=== PATIENT | female | born 1945 | race Hispanic/Latino ===

== ENCOUNTER 2017-06-16 13:16 | Emergency (ER) | payer MEDICARE ==
[2017-06-16 13:26] VITALS: BP 122/48
[2017-06-16 14:17] LABS: Basophils % (Auto) 1.1 % (0.0-1.8); Eosinophils % (Auto) 3.6 % (0.0-4.3); Hematocrit 48.4 % (30.3-42.9); Hemoglobin 15.5 gm/dl (10.1-14.3); Mean Corpuscular HGB Conc 32 % (30-34); Mean Corpuscular Hemoglobin 28 pg (28-32); Mean Corpuscular Volume 87 fl (79-97); Platelet Count 334 K/mm3 (140-440); Red Blood Count 5.58 M/mm3 (3.65-5.03); Red Cell Distribution Width 14.8 % (13.2-15.2); White Blood Count 11.4 K/mm3 (4.5-11.0)
--- NOTE | 2017-06-16 14:32 | XRay Report ---
Chest 2 views. History: Shortness of breath. Findings: The heart, lungs, and pulmonary vessels are within normal limits for age.
[2017-06-16 14:36] LABS: Anion Gap 17 mmol/L; BUN/Creatinine Ratio 19; Blood Urea Nitrogen 17 mg/dL (7-17); Calcium 8.8 mg/dL (8.4-10.2); Carbon Dioxide 23 mmol/L (22-30); Chloride 100.1 mmol/L (98-107); Glucose 95 mg/dL (65-100); Potassium 4.1 mmol/L (3.6-5.0); Sodium 136 mmol/L (137-145)
--- NOTE | 2017-06-16 15:49 | Emergency Department Report ---
ED General Adult HPI - General Chief complaint: Upper Respiratory Infection Stated complaint: FLU LIKE SYMPTOMS Time Seen by Provider: 06/16/17 15:30 Source: patient Mode of arrival: Ambulatory Limitations: No Limitations - History of Present Illness Initial comments: Chief complaint difficulty breathing History of present illness patient with a history of diabetes says she's had a cough and cold for about a week she denies fever denies chest pain although she thought she maybe a little bit of cough related symptoms she denies any abdominal pain she is here for evaluation of cough and cold symptoms for about a week Past medical history significant for diabetes Social history she denied tobacco Complete review of systems otherwise negative review of systems no exertional chest pain no tearing pain no shortness of breath or swelling no severe abdominal pain Physical exam vital signs she is afebrile she is nontoxic R signs are stable room air sat was normal generally she is awake alert oriented 3 and nontoxic in no acute distress HEENT was within normal limits Neck is supple Chest was clear to auscultation without retractions questionable mild rhonchi Pulses equal bilaterally Cardiac is S1-S2 without murmur gallop or rub appreciated. Abdomen is soft nontender without mass or rebound or guarding is appreciated Extremities are without concerns sitting with good capillary refill negative Homans sign Neuro exam grossly nonfocal ED course chest x-ray was obtained this is read as negative by the radiologist laboratory studies are unremarkable symptoms are consistent with bronchitis patient is stable at this time for outpatient follow-up she'll be placed on antibiotics she is irregular from today's return if worse Clinical impression clinical impression bronchitis Disposition treatment plan patient will be discharged if condition for outpatient follow-up to r to return if new or alarming symptoms - Related Data Home Medications Medication Instructions Recorded Confirmed Last Taken Bifidobacterium Infantis 1 each PO DAILY 06/13/16 06/14/16 06/13/16 [Digestive Probiotic] Duloxetine HCl [Cymbalta] 30 mg PO DAILY 06/13/16 06/14/16 06/13/16 Gabapentin [Neurontin] 400 mg PO Q8HR 06/13/16 06/13/16 06/13/16 Levothyroxine [Synthroid] 50 mcg PO QAM 06/13/16 06/13/16 06/13/16 Metoprolol Xl [Metoprolol 50 mg PO QDAY 06/13/16 06/13/16 06/13/16 SUCCINATE ER TAB] Pantoprazole Sodium 40 mg PO DAILY 06/13/16 06/14/16 06/13/16 Quinapril HCl 10 mg PO DAILY 06/13/16 06/13/16 06/13/16 Previous Rx's Medication Instructions Recorded Last Taken Type Albuterol Sulfate [Proair 90 mcg IH Q4HR PRN #2 aer.pow.ba 06/14/16 Unknown Rx Respiclick] Benzonatate [Tessalon Perles] 100 mg PO Q8HR PRN #30 capsule 06/14/16 Unknown Rx Dicyclomine [Bentyl] 10 mg PO QID PRN #20 capsule 06/14/16 Unknown Rx Fluticasone [Flonase] 1 spray NS QDAY #1 bottle 06/14/16 Unknown Rx Nitrofurantoin [place]/M-Cryst 100 mg PO Q12HR #14 capsule 06/14/16 Unknown Rx [Macrobid CAP] Ondansetron [Zofran Odt] 4 mg PO QID PRN #20 tab.rapdis 06/14/16 Unknown Rx Azithromycin [Zithromax Tri-Ronald] 500 mg PO QDAY #3 tablet 06/16/17 Unknown Rx Allergies Allergy/AdvReac Type Severity Reaction Status Date / Time acetaminophen [From Percocet] Allergy Angioedema Verified 06/13/16 13:09 codeine Allergy Unknown Verified 05/26/14 09:52 oxycodone HCl [From Percocet] Allergy Angioedema Verified 06/13/16 13:09 Sulfa (Sulfonamide Allergy Unknown Verified 06/13/16 13:09 Antibiotics) ED Review of Systems ROS: Stated complaint: FLU LIKE SYMPTOMS Other details as noted in HPI ED Past Medical Hx - Past Medical History Hx Hypertension: Yes Hx Diabetes: Yes Hx Arthritis: Yes (RA) Additional medical history: FIBRAMYALGIA, THYROID - Social History Smoking Status: Never Smoker Substance Use Type: None - Medications Home Medications: Home Medications Medication Instructions Recorded Confirmed Last Taken Type Bifidobacterium Infantis 1 each PO DAILY 06/13/16 06/14/16 06/13/16 History [Digestive Probiotic] Duloxetine HCl [Cymbalta] 30 mg PO DAILY 06/13/16 06/14/16 06/13/16 History Gabapentin [Neurontin] 400 mg PO Q8HR 06/13/16 06/13/16 06/13/16 History Levothyroxine [Synthroid] 50 mcg PO QAM 06/13/16 06/13/16 06/13/16 History Metoprolol Xl [Metoprolol 50 mg PO QDAY 06/13/16 06/13/16 06/13/16 History SUCCINATE ER TAB] Pantoprazole Sodium 40 mg PO DAILY 06/13/16 06/14/16 06/13/16 History Quinapril HCl 10 mg PO DAILY 06/13/16 06/13/16 06/13/16 History Albuterol Sulfate [Proair 90 mcg IH Q4HR PRN #2 aer.pow.ba 06/14/16 Unknown Rx Respiclick] Benzonatate [Tessalon Perles] 100 mg PO Q8HR PRN #30 capsule 06/14/16 Unknown Rx Dicyclomine [Bentyl] 10 mg PO QID PRN #20 capsule 06/14/16 Unknown Rx Fluticasone [Flonase] 1 spray NS QDAY #1 bottle 06/14/16 Unknown Rx Nitrofurantoin [place]/M-Cryst 100 mg PO Q12HR #14 capsule 06/14/16 Unknown Rx [Macrobid CAP] Ondansetron [Zofran Odt] 4 mg PO QID PRN #20 tab.rapdis 06/14/16 Unknown Rx Azithromycin [Zithromax Tri-Ronald] 500 mg PO QDAY #3 tablet 06/16/17 Unknown Rx ED Physical Exam - General Limitations: No Limitations ED Course Vital Signs 06/16/17 13:22 Temperature 98 F Pulse Rate 98 H Respiratory 26 H Rate Blood Pressure 122/48 O2 Sat by Pulse 96 Oximetry - Reevaluation(s) Reevaluation #1: 06/16/17 15:50 Reevaluation EKG was normal sinus rhythm unchanged from previous st change troponin was negative ED Medical Decision Making - Lab Data Result diagrams: 06/16/17 14:08 06/16/17 14:04 - EKG Data When compared to previous EKG there are: other Interpretation: no acute changes Critical care attestation.: If time is entered above; I have spent that time in minutes in the direct care of this critically ill patient, excluding procedure time. ED Disposition Clinical Impression: Bronchitis Disposition: DC-01 TO HOME OR SELFCARE Is pt being admited?: No Condition: Stable Instructions: Chronic Bronchitis (ED), Acute Bronchitis (ED) Prescriptions: Azithromycin [Zithromax Tri-Ronald] 500 mg PO QDAY #3 tablet Time of Disposition: 16:04 Print Language: SERBIAN
== END 2017-06-16 16:26 | disposition home or self-care (01) ==
LOC: ED 13:16
DX: J40 Bronchitis, not specified as acute or chronic (principal); I10 Essential (primary) hypertension; E11.9 Type 2 diabetes mellitus without complications; M06.9 Rheumatoid arthritis, unspecified; M79.7 Fibromyalgia; Z88.6 Allergy status to analgesic agent; Z88.2 Allergy status to sulfonamides; Z88.5 Allergy status to narcotic agent
CPT/HCPCS: 36415; 71020; 80048; 84484; 85025; 93005; 93010; 99284

== ENCOUNTER 2018-01-04 13:36 | Emergency (ER) | payer MEDICARE ==
[2018-01-04 14:37] LABS: Basophils # (Auto) 0.1 K/mm3 (0.0-0.1); Basophils % (Auto) 1.3 % (0.0-1.8); Eosinophils # (Auto) 0.3 K/mm3 (0.0-0.4); Hemoglobin 14.8 gm/dl (10.1-14.3); Lymphocytes # (Auto) 2.5 K/mm3 (1.2-5.4); Lymphocytes % (Auto) 31.2 % (13.4-35.0); Mean Corpuscular HGB Conc 33 % (30-34); Mean Corpuscular Hemoglobin 29 pg (28-32); Mean Corpuscular Volume 87 fl (79-97); Monocytes # (Auto) 0.9 K/mm3 (0.0-0.8); Monocytes % (Auto) 10.7 % (0.0-7.3); Platelet Count 326 K/mm3 (140-440); Red Blood Count 5.18 M/mm3 (3.65-5.03); Red Cell Distribution Width 14.3 % (13.2-15.2)
[2018-01-04 14:40] LABS: Bilirubin,Urine NEG (Negative); Blood,Urine NEG (Negative); Color,Urine Yellow (Yellow); Mucus,Urine FEW /HPF; Protein,Urine <15 mg/dL mg/dL (Negative); Urobilinogen,Urine < 2.0 mg/dL (<2.0)
[2018-01-04 14:51] LABS: Alanine Aminotransferase 10 units/L (7-56); Albumin 3.6 g/dL (3.9-5); BUN/Creatinine Ratio 18; Blood Urea Nitrogen 14 mg/dL (7-17); Calcium 8.8 mg/dL (8.4-10.2); Hemolysis Index 10
[2018-01-04] MEDS ORDERED: PEPCID IV ONE (16:29)
[2018-01-04] MEDS ORDERED: ZOFRAN IV ONE (16:29)
[2018-01-04] MEDS ORDERED: TORADOL IV ONE (16:29)
[2018-01-04] MEDS ORDERED: BENTYL IM ONE (16:29)
--- NOTE | 2018-01-04 16:33 | Emergency Department Report ---
Diane Doc - Documentation Documentation: Patient is a 72-year-old female who is presenting with diffuse abdominal pain. Patient states pain has been present for approximately a week and is worse than her norm. Patient does have a history of irritable bowel syndrome but states she's never had pain at this magnitude. Patient states last night she had a very large bowel movement that was loose within was no blood present. She does feel as though maybe a hemorrhoid may have popped out during his bowel movement but she was able to push it back in. Patient denies any fevers chills she does have some nausea however. On brief focused physical exam patient does have normal bowel sounds and is diffusely tender with no rebound or guarding. Patient be moved to a treatment room IV fluids started patient also be given as for symptomatic relief. CT of the abdomen and pelvis will be obtained. Julia
[2018-01-04] MEDS: NACL 0.9% 1000 ML 1,000 ML IV ONE ×2 (16:53→16:54)
--- NOTE | 2018-01-04 18:20 | Cat Scan Report ---
FINAL REPORT EXAM: CT ABDOMEN PELVIS W CON HISTORY: diffuse severe abd pain TECHNIQUE: Spiral CT scanning of the abdomen and pelvis after the uneventful administration of IV contrast. Multiplanar reformations. PRIORS: 13 June 2016. FINDINGS: Abdomen: Visualized lung bases again show a few, small nodular densities scattered bilaterally, largest measuring 8 mm in right lower lobe, stable. Gallbladder surgically absent. Gastric body incompletely or nondistended, with some wall and fold thickening, but no significant perigastric fat stranding. Liver without significant abnormality. Spleen without significant abnormality. Pancreas without significant abnormality. Partially exophytic and heterogeneously enhancing soft tissue density or mass off left renal mid pole cortex measuring 1.3 cm. Right kidney grossly unremarkable. Adrenal glands without significant abnormality. Pelvis: Bowel grossly unremarkable, with large amount of retained stool. Appendix within normal limits. No significant free peritoneal fluid, discrete abscess or apparent adenopathy. Abdominal aorta non-aneurysmal. Degenerative changes in thoracolumbar spine. Very small, fat-containing umbilical hernia. IMPRESSION: 1. Heterogeneously enhancing soft tissue density or mass in left kidney suspicious for small renal cell carcinoma. Clinical correlation and followup suggested. 2. Findings which may be due to incomplete or nondistention versus nonspecific postinflammatory change in the stomach. Correlate clinically. 3. Constipation. 4. Multiple, nodular densities in bilateral lung bases indeterminate, but stable. If the patient is low risk (no significant smoking history, no history of malignancy, and a normal immune system), multiple nodules, largest 6-8 mm in size, need CT chest at 3-6 months, then consider CT chest at 18-24 months. If the patient is high risk, need CT chest at 3-6 months, then CT chest at 18-24 months. (Based on Fleischner guidelines.) Unexpected nonemergent findings. [facility] broadcast operations director to notify client.
--- NOTE | 2018-01-04 18:42 | Emergency Department Report ---
ED Abdominal Pain HPI - General Chief Complaint: Abdominal Pain Stated Complaint: ABD PAIN Time Seen by Provider: 01/04/18 16:03 Source: patient Mode of arrival: Ambulatory Limitations: No Limitations - History of Present Illness Initial Comments: Patient is a 72-year-old female who is presenting with diffuse abdominal pain. Patient states pain has been present for approximately a week and is worse than her norm. Patient does have a history of irritable bowel syndrome but states she's never had pain at this magnitude. Patient states last night she had a very large bowel movement that was loose within was no blood present. She does feel as though maybe a hemorrhoid may have popped out during his bowel movement but she was able to push it back in. Patient denies any fevers chills she does have some nausea however. On brief focused physical exam patient does have normal bowel sounds and is diffusely tender with no rebound or guarding. Severity scale (0 -10): 5 - Related Data Home Medications Medication Instructions Recorded Confirmed Last Taken Bifidobacterium Infantis 1 each PO DAILY 06/13/16 06/14/16 06/13/16 [Digestive Probiotic] Duloxetine HCl [Cymbalta] 30 mg PO DAILY 06/13/16 06/14/16 06/13/16 Gabapentin [Neurontin] 400 mg PO Q8HR 06/13/16 06/13/16 06/13/16 Levothyroxine [Synthroid] 50 mcg PO QAM 06/13/16 06/13/16 06/13/16 Metoprolol Xl [Metoprolol 50 mg PO QDAY 06/13/16 06/13/16 06/13/16 SUCCINATE ER TAB] Pantoprazole Sodium 40 mg PO DAILY 06/13/16 06/14/16 06/13/16 Quinapril HCl 10 mg PO DAILY 06/13/16 06/13/16 06/13/16 Previous Rx's Medication Instructions Recorded Last Taken Type Albuterol Sulfate [Proair 90 mcg IH Q4HR PRN #2 aer.pow.ba 06/14/16 Unknown Rx Respiclick] Benzonatate [Tessalon Perles] 100 mg PO Q8HR PRN #30 capsule 06/14/16 Unknown Rx Dicyclomine [Bentyl] 10 mg PO QID PRN #20 capsule 06/14/16 Unknown Rx Fluticasone [Flonase] 1 spray NS QDAY #1 bottle 06/14/16 Unknown Rx Nitrofurantoin Cedar/M-Cryst 100 mg PO Q12HR #14 capsule 06/14/16 Unknown Rx [Macrobid CAP] Ondansetron [Zofran Odt] 4 mg PO QID PRN #20 tab.rapdis 06/14/16 Unknown Rx Azithromycin [Zithromax Tri-Ronald] 500 mg PO QDAY #3 tablet 06/16/17 Unknown Rx Dicyclomine [Bentyl] 10 mg PO QID #15 capsule 01/04/18 Unknown Rx Docusate Sodium [Colace] 100 mg PO BID #20 capsule 01/04/18 Unknown Rx Ketorolac [Toradol] 10 mg PO Q6H PRN #20 tablet 01/04/18 Unknown Rx Allergies Allergy/AdvReac Type Severity Reaction Status Date / Time acetaminophen [From Percocet] Allergy Angioedema Verified 06/13/16 13:09 codeine Allergy Unknown Verified 05/26/14 09:52 oxycodone HCl [From Percocet] Allergy Angioedema Verified 06/13/16 13:09 Sulfa (Sulfonamide Allergy Unknown Verified 06/13/16 13:09 Antibiotics) ED Review of Systems ROS: Stated complaint: ABD PAIN Other details as noted in HPI Comment: All other systems reviewed and negative ED Past Medical Hx - Past Medical History Hx Hypertension: Yes Hx Diabetes: Yes Hx Arthritis: Yes (RA) Additional medical history: FIBRAMYALGIA, THYROID, IBS - Surgical History Hx Cholecystectomy: Yes Hx Breast Surgery: Yes Additional Surgical History: Hysterectomy - Social History Smoking Status: Never Smoker Substance Use Type: Alcohol - Medications Home Medications: Home Medications Medication Instructions Recorded Confirmed Last Taken Type Bifidobacterium Infantis 1 each PO DAILY 06/13/16 06/14/16 06/13/16 History [Digestive Probiotic] Duloxetine HCl [Cymbalta] 30 mg PO DAILY 06/13/16 06/14/16 06/13/16 History Gabapentin [Neurontin] 400 mg PO Q8HR 06/13/16 06/13/16 06/13/16 History Levothyroxine [Synthroid] 50 mcg PO QAM 06/13/16 06/13/16 06/13/16 History Metoprolol Xl [Metoprolol 50 mg PO QDAY 06/13/16 06/13/16 06/13/16 History SUCCINATE ER TAB] Pantoprazole Sodium 40 mg PO DAILY 06/13/16 06/14/16 06/13/16 History Quinapril HCl 10 mg PO DAILY 06/13/16 06/13/16 06/13/16 History Albuterol Sulfate [Proair 90 mcg IH Q4HR PRN #2 aer.pow.ba 06/14/16 Unknown Rx Respiclick] Benzonatate [Tessalon Perles] 100 mg PO Q8HR PRN #30 capsule 06/14/16 Unknown Rx Dicyclomine [Bentyl] 10 mg PO QID PRN #20 capsule 06/14/16 Unknown Rx Fluticasone [Flonase] 1 spray NS QDAY #1 bottle 06/14/16 Unknown Rx Nitrofurantoin Cedar/M-Cryst 100 mg PO Q12HR #14 capsule 06/14/16 Unknown Rx [Macrobid CAP] Ondansetron [Zofran Odt] 4 mg PO QID PRN #20 tab.rapdis 06/14/16 Unknown Rx Azithromycin [Zithromax Tri-Ronald] 500 mg PO QDAY #3 tablet 06/16/17 Unknown Rx Dicyclomine [Bentyl] 10 mg PO QID #15 capsule 01/04/18 Unknown Rx Docusate Sodium [Colace] 100 mg PO BID #20 capsule 01/04/18 Unknown Rx Ketorolac [Toradol] 10 mg PO Q6H PRN #20 tablet 01/04/18 Unknown Rx ED Physical Exam - General Limitations: No Limitations General appearance: alert, in no apparent distress - Head Head exam: Present: atraumatic, normocephalic - Eye Eye exam: Present: normal appearance - ENT ENT exam: Present: mucous membranes moist - Neck Neck exam: Present: normal inspection - Respiratory Respiratory exam: Present: normal lung sounds bilaterally. Absent: respiratory distress, wheezes, rales, rhonchi - Cardiovascular Cardiovascular Exam: Present: regular rate, normal rhythm. Absent: systolic murmur, diastolic murmur, rubs, gallop - GI/Abdominal GI/Abdominal exam: Present: soft, tenderness (generalized), normal bowel sounds. Absent: distended, guarding, rebound - Extremities Exam Extremities exam: Present: normal inspection - Back Exam Back exam: Present: normal inspection - Neurological Exam Neurological exam: Present: alert, oriented X3 - Psychiatric Psychiatric exam: Present: normal affect, normal mood - Skin Skin exam: Present: warm, dry, intact, normal color. Absent: rash ED Course Vital Signs 01/04/18 13:49 Temperature 98.1 F Pulse Rate 75 Respiratory 17 Rate Blood Pressure 142/59 O2 Sat by Pulse 96 Oximetry ED Medical Decision Making - Lab Data Result diagrams: 01/04/18 14:19 01/04/18 14:19 Lab Results 01/04/18 01/04/18 01/04/18 Range/Units 14:13 14:19 14:19 WBC 8.1 (4.5-11.0) K/mm3 RBC 5.18 H (3.65-5.03) M/mm3 Hgb 14.8 H (10.1-14.3) gm/dl Hct 45.0 H (30.3-42.9) % MCV 87 (79-97) fl MCH 29 (28-32) pg MCHC 33 (30-34) % RDW 14.3 (13.2-15.2) % Plt Count 326 (140-440) K/mm3 Lymph % (Auto) 31.2 (13.4-35.0) % Cedar % (Auto) 10.7 H (0.0-7.3) % Eos % (Auto) 4.0 (0.0-4.3) % Baso % (Auto) 1.3 (0.0-1.8) % Lymph # 2.5 (1.2-5.4) K/mm3 Cedar # 0.9 H (0.0-0.8) K/mm3 Eos # 0.3 (0.0-0.4) K/mm3 Baso # 0.1 (0.0-0.1) K/mm3 Seg Neutrophils % 52.8 (40.0-70.0) % Seg Neutrophils # 4.3 (1.8-7.7) K/mm3 Sodium 139 (137-145) mmol/L Potassium 4.2 (3.6-5.0) mmol/L Chloride 101.0 (98-107) mmol/L Carbon Dioxide 27 (22-30) mmol/L Anion Gap 15 mmol/L BUN 14 (7-17) mg/dL Creatinine 0.8 (0.7-1.2) mg/dL Estimated GFR > 60 ml/min BUN/Creatinine Ratio 18 % Glucose 110 H (65-100) mg/dL Calcium 8.8 (8.4-10.2) mg/dL Total Bilirubin 0.20 (0.1-1.2) mg/dL AST 17 (5-40) units/L ALT 10 (7-56) units/L Alkaline Phosphatase 72 (35-129) units/L Total Protein 6.8 (6.3-8.2) g/dL Albumin 3.6 L (3.9-5) g/dL Albumin/Globulin Ratio 1.1 % Urine Color Yellow (Yellow) Urine Turbidity Clear (Clear) Urine pH 5.0 (5.0-7.0) Ur Specific [place] 1.006 (1.003-1.030) Urine Protein <15 mg/dl (Negative) mg/dL Urine Glucose (UA) Neg (Negative) mg/dL Urine Ketones Neg (Negative) mg/dL Urine Blood Neg (Negative) Urine Nitrite Neg (Negative) Urine Bilirubin Neg (Negative) Urine Urobilinogen < 2.0 (<2.0) mg/dL Ur Leukocyte Esterase Tr (Negative) Urine WBC (Auto) 1.0 (0.0-6.0) /HPF Urine RBC (Auto) 2.0 (0.0-6.0) /HPF Urine Mucus Few /HPF - Radiology Data Patient: OSKAR PERALES MR#: [id number] : 1945 Acct:[id number] Age/Sex: 72 / F ADM Date: 01/04/18 Loc: ED Attending Dr: Ordering Physician: TAY HOWELL MD Date of Service: 01/04/18 Procedure(s): CT abdomen pelvis w con Accession Number(s): [id number] cc: TAY HOWELL MD FINAL REPORT EXAM: CT ABDOMEN PELVIS W CON HISTORY: diffuse severe abd pain TECHNIQUE: Spiral CT scanning of the abdomen and pelvis after the uneventful administration of IV contrast. Multiplanar reformations. PRIORS: 13 June 2016. FINDINGS: Abdomen: Visualized lung bases again show a few, small nodular densities scattered bilaterally, largest measuring 8 mm in right lower lobe, stable. Gallbladder surgically absent. Gastric body incompletely or nondistended, with some wall and fold thickening, but no significant perigastric fat stranding. Liver without significant abnormality. Spleen without significant abnormality. Pancreas without significant abnormality. Partially exophytic and heterogeneously enhancing soft tissue density or mass off left renal mid pole cortex measuring 1.3 cm. Right kidney grossly unremarkable. Adrenal glands without significant abnormality. Pelvis: Bowel grossly unremarkable, with large amount of retained stool. Appendix within normal limits. No significant free peritoneal fluid, discrete abscess or apparent adenopathy. Abdominal aorta non-aneurysmal. Degenerative changes in thoracolumbar spine. Very small, fat-containing umbilical hernia. IMPRESSION: 1. Heterogeneously enhancing soft tissue density or mass in left kidney suspicious for small renal cell carcinoma. Clinical correlation and followup suggested. 2. Findings which may be due to incomplete or nondistention versus nonspecific postinflammatory change in the stomach. Correlate clinically. 3. Constipation. 4. Multiple, nodular densities in bilateral lung bases indeterminate, but stable. If the patient is low risk (no significant smoking history, no history of malignancy, and a normal immune system), multiple nodules, largest 6-8 mm in size, need CT chest at 3-6 months, then consider CT chest at 18-24 months. If the patient is high risk, need CT chest at 3-6 months, then CT chest at 18-24 months. (Based on Fleischner guidelines.) Unexpected nonemergent findings. [facility] operations lieutenant to notify client. Transcribed By: [facility] Dictated By: ANGELIQUE PÉREZ MD Electronically Authenticated By: ANGELIQUE PÉREZ MD Signed Date/Time: 01/04/181814 - Medical Decision Making Patient's laboratory studies are within normal limits. Patient's CT did show some abnormality to the left kidney suspicious for carcinoma. Patient will be given nephrology for follow-up. 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 Patient stable for discharge. Critical care attestation.: If time is entered above; I have spent that time in minutes in the direct care of this critically ill patient, excluding procedure time. ED Disposition Clinical Impression: Gastroenteritis, Kidney mass Disposition: DC-01 TO HOME OR SELFCARE Is pt being admited?: No Does the pt Need Aspirin: No Condition: Stable Instructions: Abdominal Pain (ED) Referrals: JAX BRUNO MD [Primary Care Provider] - 3-5 Days MARIFER BALL MD [Staff Physician] - 3-5 Days
[2018-01-04 19:07] VITALS: BP 136/72
== END 2018-01-04 19:05 | disposition home or self-care (01) ==
LOC: ED 13:36
DX: K52.9 Noninfective gastroenteritis and colitis, unspecified (principal); N28.89 Other specified disorders of kidney and ureter; I10 Essential (primary) hypertension; E11.9 Type 2 diabetes mellitus without complications; M19.90 Unspecified osteoarthritis, unspecified site; Z90.710 Acquired absence of both cervix and uterus; Z90.49 Acquired absence of other specified parts of digestive tract; Z88.6 Allergy status to analgesic agent; Z88.5 Allergy status to narcotic agent; Z88.2 Allergy status to sulfonamides
CPT/HCPCS: 36415; 74177; 80053; 81001; 85025; 96361; 96372; 96374; 96375; 99284; J0500; J1885; J2405; J7030; Q9967

== ENCOUNTER 2018-01-30 11:53 | Outpatient (CLI) | payer MEDICARE ==
[2018-01-30 12:21] LABS: Basophils # (Auto) 0.1 K/mm3 (0.0-0.1); Basophils % (Auto) 0.9 % (0.0-1.8); Eosinophils # (Auto) 0.3 K/mm3 (0.0-0.4); Eosinophils % (Auto) 3.6 % (0.0-4.3); Hematocrit 45.6 % (30.3-42.9); Hemoglobin 15.3 gm/dl (10.1-14.3); Lymphocytes # (Auto) 2.8 K/mm3 (1.2-5.4); Lymphocytes % (Auto) 35.2 % (13.4-35.0); Mean Corpuscular HGB Conc 34 % (30-34); Mean Corpuscular Hemoglobin 29 pg (28-32); Mean Corpuscular Volume 86 fl (79-97); Monocytes % (Auto) 12.5 % (0.0-7.3); Platelet Count 365 K/mm3 (140-440); Red Blood Count 5.29 M/mm3 (3.65-5.03); Red Cell Distribution Width 14.4 % (13.2-15.2)
[2018-01-30 12:38] LABS: BUN/Creatinine Ratio 11; Blood Urea Nitrogen 9 mg/dL (7-17); Calcium 9.6 mg/dL (8.4-10.2); Hemolysis Index 3
[2018-01-30 13:15] LABS: Bilirubin,Urine NEG (Negative); Blood,Urine NEG (Negative); Color,Urine Yellow (Yellow); Hyaline Casts,Urine 1 /LPF; Mucus,Urine FEW /HPF; Protein,Urine <15 mg/dL mg/dL (Negative); Urobilinogen,Urine < 2.0 mg/dL (<2.0)
== END 2018-01-30 11:54 | disposition home or self-care (01) ==
LOC: LAB 11:53
PROVIDERS: ATTEND Internal Medicine Nephrology
DX: I12.9 Hypertensive chronic kidney disease with stage 1 through stage 4 chronic kidney disease, or unspecified chronic kidney disease (principal); N18.2 Chronic kidney disease, stage 2 (mild); N28.1 Cyst of kidney, acquired; M19.90 Unspecified osteoarthritis, unspecified site; Z88.6 Allergy status to analgesic agent; Z88.1 Allergy status to other antibiotic agents
CPT/HCPCS: 36415; 80048; 81001; 82570; 85025

== ENCOUNTER 2019-03-09 17:36 | Emergency (ER) | payer MEDICARE ==
[2019-03-09] MEDS ORDERED: ROBITUSSIN PO ONE (18:09)
--- NOTE | 2019-03-09 18:10 | Event Note ---
ED Screening Note Date of service: 03/09/19 Time: 18:08 ED Screening Note: 73 y o male presents with prod cough with cp from intermittent continous coughing This initial assessment/diagnostic orders/clinical plan/treatment(s) is/are subject to change based on patients health status, clinical progression and re- assessment by fellow clinical providers in the ED. Further treatment and workup at subsequent clinical providers discretion. Patient/guardian urged not to elope from the ED as their condition may be serious if not clinically assessed and managed. Initial orders include: cxr
--- NOTE | 2019-03-09 18:35 | XRay Report ---
CHEST 2 VIEWS, 03/09/2019 INDICATION: Cough COMPARISON: 06/16/2017 FINDINGS: Support devices: None Heart: Heart size and pulmonary vascularity appear within normal limits. Lungs/pleura: There is no focal airspace disease or significant pleural effusion. Additional findings: Evaluation of bony structures demonstrates no evidence of acute bony abnormality . IMPRESSION: 1. No evidence of acute cardiopulmonary process. Signer Name: Savana Marquez MD Signed: 03/09/2019 6:31 PM Workstation Name: [id number]
[2019-03-09] MEDS ORDERED: TYLENOL PO ONE (20:58)
--- NOTE | 2019-03-09 21:43 | Emergency Department Report ---
- General Chief Complaint: Upper Respiratory Infection Stated Complaint: COUGH Time Seen by Provider: 03/09/19 18:08 Source: patient Mode of arrival: Ambulatory Limitations: No Limitations - History of Present Illness Initial Comments: pt is a 73 y/o female who presents for URI x 1 week symptoms include rhinnorhea sore throat, noc wheezing, there is no fever no chills , N/V , cough is productive clear, there is no sob no cp no lihght headedness no n/v MD Complaint: cough, rhinorrhea, nasal congestion Onset/Timin -: week(s) Severity: moderate Severity scale (0 -10): 5 Quality: burning Consistency: constant, intermittent Worsens With: activity Context: sick contacts Associated Symptoms: rhinorrhea, nasal congestion, sore throat, cough. denies: myalgias Treatments Prior to Arrival: none - Related Data Home Medications Medication Instructions Recorded Confirmed Last Taken Bifidobacterium Infantis 1 each PO DAILY 06/13/16 06/14/16 06/13/16 [Digestive Probiotic] Duloxetine HCl [Cymbalta] 30 mg PO DAILY 06/13/16 06/14/16 06/13/16 Gabapentin [Neurontin] 400 mg PO Q8HR 06/13/16 06/13/16 06/13/16 Levothyroxine [Synthroid] 50 mcg PO QAM 06/13/16 06/13/16 06/13/16 Metoprolol Xl [Metoprolol 50 mg PO QDAY 06/13/16 06/13/16 06/13/16 SUCCINATE ER TAB] Pantoprazole Sodium 40 mg PO DAILY 06/13/16 06/14/16 06/13/16 Quinapril HCl 10 mg PO DAILY 06/13/16 06/13/16 06/13/16 Previous Rx's Medication Instructions Recorded Last Taken Type Benzonatate [Tessalon Perles] 100 mg PO Q8HR PRN #30 capsule 06/14/16 Unknown Rx Dicyclomine [Bentyl] 10 mg PO QID PRN #20 capsule 06/14/16 Unknown Rx Fluticasone [Flonase] 1 spray NS QDAY #1 bottle 06/14/16 Unknown Rx Nitrofurantoin Bosque/M-Cryst 100 mg PO Q12HR #14 capsule 06/14/16 Unknown Rx [Macrobid CAP] Ondansetron [Zofran Odt] 4 mg PO QID PRN #20 tab.rapdis 06/14/16 Unknown Rx Dicyclomine [Bentyl] 10 mg PO QID #15 capsule 01/04/18 Unknown Rx Docusate Sodium [Colace] 100 mg PO BID #20 capsule 01/04/18 Unknown Rx Ketorolac [Toradol] 10 mg PO Q6H PRN #20 tablet 01/04/18 Unknown Rx Acetaminophen [Acetaminophen TAB] 650 mg PO Q6HR PRN #30 tablet 03/09/19 Unknown Rx Albuterol Sulfate [Proair 90 mcg IH Q4HR PRN #2 aer.pow.ba 03/09/19 Unknown Rx Respiclick] Azithromycin [Zithromax Tri-Ronald] 500 mg PO QDAY #3 tablet 03/09/19 Unknown Rx Benzonatate [Tessalon Perles] 100 mg PO Q8HR #9 capsule 03/09/19 Unknown Rx predniSONE [Deltasone] 40 mg PO QDAY 5 Days #10 tab 03/09/19 Unknown Rx Allergies Allergy/AdvReac Type Severity Reaction Status Date / Time acetaminophen [From Percocet] Allergy Angioedema Verified 06/13/16 13:09 codeine Allergy Unknown Verified 05/26/14 09:52 oxycodone HCl [From Percocet] Allergy Angioedema Verified 06/13/16 13:09 Sulfa (Sulfonamide Allergy Unknown Verified 06/13/16 13:09 Antibiotics) ED Review of Systems ROS: Stated complaint: COUGH Other details as noted in HPI Constitutional: malaise. denies: chills, fever Eyes: denies: eye pain, eye discharge, vision change ENT: congestion. denies: ear pain, throat pain Respiratory: denies: cough, shortness of breath, wheezing Cardiovascular: denies: chest pain, palpitations, dyspnea on exertion, paroxysmal nocturnal dyspnea Endocrine: no symptoms reported Gastrointestinal: denies: abdominal pain, nausea, vomiting, diarrhea Genitourinary: denies: urgency, dysuria, discharge Musculoskeletal: denies: back pain, joint swelling, arthralgia Skin: as per HPI Neurological: denies: headache, weakness, paresthesias Psychiatric: denies: anxiety, depression Hematological/Lymphatic: denies: easy bleeding, easy bruising ED Past Medical Hx - Past Medical History Hx Hypertension: Yes Hx Diabetes: Yes Hx Arthritis: Yes (RA) Additional medical history: FIBRAMYALGIA, THYROID, IBS - Surgical History Hx Cholecystectomy: Yes Hx Breast Surgery: Yes Additional Surgical History: Hysterectomy - Social History Smoking Status: Never Smoker - Medications Home Medications: Home Medications Medication Instructions Recorded Confirmed Last Taken Type Bifidobacterium Infantis 1 each PO DAILY 06/13/16 06/14/16 06/13/16 History [Digestive Probiotic] Duloxetine HCl [Cymbalta] 30 mg PO DAILY 06/13/16 06/14/16 06/13/16 History Gabapentin [Neurontin] 400 mg PO Q8HR 06/13/16 06/13/16 06/13/16 History Levothyroxine [Synthroid] 50 mcg PO QAM 06/13/16 06/13/16 06/13/16 History Metoprolol Xl [Metoprolol 50 mg PO QDAY 06/13/16 06/13/16 06/13/16 History SUCCINATE ER TAB] Pantoprazole Sodium 40 mg PO DAILY 06/13/16 06/14/16 06/13/16 History Quinapril HCl 10 mg PO DAILY 06/13/16 06/13/16 06/13/16 History Benzonatate [Tessalon Perles] 100 mg PO Q8HR PRN #30 capsule 06/14/16 Unknown Rx Dicyclomine [Bentyl] 10 mg PO QID PRN #20 capsule 06/14/16 Unknown Rx Fluticasone [Flonase] 1 spray NS QDAY #1 bottle 06/14/16 Unknown Rx Nitrofurantoin Bosque/M-Cryst 100 mg PO Q12HR #14 capsule 06/14/16 Unknown Rx [Macrobid CAP] Ondansetron [Zofran Odt] 4 mg PO QID PRN #20 tab.rapdis 06/14/16 Unknown Rx Dicyclomine [Bentyl] 10 mg PO QID #15 capsule 01/04/18 Unknown Rx Docusate Sodium [Colace] 100 mg PO BID #20 capsule 01/04/18 Unknown Rx Ketorolac [Toradol] 10 mg PO Q6H PRN #20 tablet 01/04/18 Unknown Rx Acetaminophen [Acetaminophen TAB] 650 mg PO Q6HR PRN #30 tablet 03/09/19 Un known Rx Albuterol Sulfate [Proair 90 mcg IH Q4HR PRN #2 aer.pow.ba 03/09/19 Unknown Rx Respiclick] Azithromycin [Zithromax Tri-Ronald] 500 mg PO QDAY #3 tablet 03/09/19 Unknown Rx Benzonatate [Tessalon Perles] 100 mg PO Q8HR #9 capsule 03/09/19 Unknown Rx predniSONE [Deltasone] 40 mg PO QDAY 5 Days #10 tab 03/09/19 Unknown Rx ED Physical Exam - General Limitations: No Limitations General appearance: alert, in no apparent distress - Head Head exam: Present: atraumatic, normocephalic - Eye Eye exam: Present: normal appearance, PERRL, EOMI. Absent: nystagmus Pupils: Present: normal accommodation. Absent: irregular - ENT ENT exam: Present: normal orophraynx, mucous membranes moist, TM's normal bilaterally, normal external ear exam - Expanded ENT Exam Expanded Ear exam: Present: normal external inspection Mouth exam: Present: normal external inspection, tongue normal. Absent: tongue elevation Teeth exam: Present: normal inspection Throat exam: Positive: normal inspection - Neck Neck exam: Present: normal inspection, full ROM. Absent: tenderness, lymphadenopathy, thyromegaly - Respiratory Respiratory exam: Present: normal lung sounds bilaterally. Absent: respiratory distress, wheezes, rhonchi, chest wall tenderness, prolonged expiratory - Cardiovascular Cardiovascular Exam: Present: regular rate, normal rhythm, normal heart sounds. Absent: systolic murmur, diastolic murmur, rubs, gallop - GI/Abdominal GI/Abdominal exam: Present: soft, normal bowel sounds. Absent: distended, tenderness, bruit, hernia - Rectal Rectal exam: Present: deferred - Extremities Exam Extremities exam: Present: normal inspection, full ROM, normal capillary refill. Absent: tenderness, pedal edema, joint swelling, calf tenderness - Back Exam Back exam: Present: normal inspection. Absent: CVA tenderness (R), CVA tenderness (L) - Neurological Exam Neurological exam: Present: alert, oriented X3, CN II-XII intact, normal gait, motor sensory deficit, reflexes normal - Psychiatric Psychiatric exam: Present: normal affect, normal mood - Skin Skin exam: Present: warm, dry, intact, normal color. Absent: rash ED Course Vital Signs 03/09/19 03/09/19 18:08 21:16 Temperature 97.9 F Pulse Rate 77 Respiratory 18 16 Rate Blood Pressure 134/76 O2 Sat by Pulse 99 Oximetry ED Medical Decision Making - EKG Data Interpretation: normal EKG - Radiology Data Radiology results: report reviewed, image reviewed no opacities no infiltrates - Medical Decision Making this is a uri, plan, flonase, tylenol, tessalon nora, zyrtec follow up with [facility] in 2-3 days Critical care attestation.: If time is entered above; I have spent that time in minutes in the direct care of this critically ill patient, excluding procedure time. ED Disposition Clinical Impression: Pharyngitis Qualifiers: Pharyngitis/tonsillitis etiology: unspecified etiology Qualified Code(s): J02.9 - Acute pharyngitis, unspecified Disposition: TO HOME OR SELFCARE Is pt being admited?: No Does the pt Need Aspirin: No Condition: Stable Instructions: Upper Respiratory Infection (ED), Pharyngitis (ED) Prescriptions: Acetaminophen [Acetaminophen TAB] 650 mg PO Q6HR PRN #30 tablet PRN Reason: Pain predniSONE [Deltasone] 40 mg PO QDAY 5 Days #10 tab Albuterol Sulfate [Proair Respiclick] 90 mcg IH Q4HR PRN #2 aer.pow.ba PRN Reason: Wheezing Benzonatate [Tessalon Perles] 100 mg PO Q8HR #9 capsule Azithromycin [Zithromax Tri-Ronald] 500 mg PO QDAY #3 tablet Referrals: JOSIAS SOMERS MD [Primary Care Provider] - 3-5 Days Forms: Work/School Release Form(ED) Time of Disposition: 21:56
[2019-03-09 22:20] VITALS: BP 137/68
== END 2019-03-09 22:20 | disposition home or self-care (01) ==
LOC: ED 17:36
DX: J02.9 Acute pharyngitis, unspecified (principal); I10 Essential (primary) hypertension; E11.9 Type 2 diabetes mellitus without complications; M19.90 Unspecified osteoarthritis, unspecified site; Z90.49 Acquired absence of other specified parts of digestive tract; Z90.710 Acquired absence of both cervix and uterus; Z79.899 Other long term (current) drug therapy; Z88.6 Allergy status to analgesic agent; Z88.8 Allergy status to other drugs, medicaments and biological substances; Z88.2 Allergy status to sulfonamides
CPT/HCPCS: 71046; 99283